=== PATIENT | male | born 1950 | race Caucasian/White ===

== ENCOUNTER 2023-06-25 11:13 | Outpatient (CLI) | payer OTHER | END 2023-06-25 11:14 | disposition home or self-care (01) | LOC: CSHRAD 11:13 | PROVIDERS: ATTEND Family Medicine | DX: G62.9 Polyneuropathy, unspecified (principal); M16.9 Osteoarthritis of hip, unspecified; R05.9 Cough, unspecified; M51.36 Other intervertebral disc degeneration, lumbar region; M47.816 Spondylosis without myelopathy or radiculopathy, lumbar region; M16.11 Unilateral primary osteoarthritis, right hip; Z96.642 Presence of left artificial hip joint; J98.6 Disorders of diaphragm; M48.54XA Collapsed vertebra, not elsewhere classified, thoracic region, initial encounter for fracture | CPT/HCPCS: 71046; 72100 ==

== ENCOUNTER 2023-08-08 13:05 | Outpatient (CLI) | payer OTHER | END 2023-08-08 13:06 | disposition home or self-care (01) | LOC: CSHMRI 13:05 | PROVIDERS: ATTEND Family Medicine | DX: M16.11 Unilateral primary osteoarthritis, right hip (principal); S76.011A Strain of muscle, fascia and tendon of right hip, initial encounter; M67.951 Unspecified disorder of synovium and tendon, right thigh ==

== ENCOUNTER 2023-08-31 17:03 | Emergency (ER) | payer OTHER ==
[2023-08-31 19:34] LABS: Bilirubin Neg (Negative); Blood, Urine 25 (Negative); Glucose, Urine (Dipstick) Normal (Negative); Ketone, Urine Negative (Negative); Leukocyte 25 (Negative); Nitrite Negative (Negative); Protein, Urine (Dipstick) Negative (Neg-Trace); Urobilinogen Normal mg/dL (Less than 2)
[2023-08-31 19:41] LABS: ALT (SGPT) 312 U/L (8-55); AST (SGOT) 195 U/L (5-34); Albumin 3.4 g/dL (3.4-4.8); Alkaline Phosphatase 82 U/L (40-110); Anion Gap 15 mmol/L (10-20); BUN (Urea Nitrogen) 17 mg/dL (8.4-25.7); Bilirubin, Total 0.8 mg/dL (0.2-1.2); Calc. Creatinine Clearance 0 mL/min (70-130); Calcium 8.5 mg/dL (7.8-10.44); Carbon Dioxide 24 mmol/L (23-31); Chloride 101 mmol/L (98-107); Estimated GFR 109; Globulin 3.6 g/dL (2.4-3.5); Glucose 129 mg/dL (83-110); Potassium 4.3 mmol/L (3.5-5.1); Sodium 136 mmol/L (136-145)
[2023-08-31 20:09] LABS: Clarity Turbid (Clear)
[2023-08-31 20:10] LABS: Bacteria/HPF 4+ HPF (None Seen); CAUTI Indications for Culture Dysuria,urgency,freq; RBC/HPF 0-3 HPF (0-3); Squamous Epithelial 0-3 HPF (0-3)
[2023-08-31 20:12] LABS: Urine Culture Reflex No No
== END 2023-08-31 20:25 | disposition home or self-care (01) ==
LOC: CSHERS 17:03
DX: N39.0 Urinary tract infection, site not specified (principal); E78.00 Pure hypercholesterolemia, unspecified
CPT/HCPCS: 80053; 81001; 99283

== ENCOUNTER 2023-10-08 11:37 | Outpatient (CLI) | payer OTHER | END 2023-10-08 11:38 | disposition home or self-care (01) | LOC: CSHMRI 11:37 | PROVIDERS: ATTEND Neurological Surgery | DX: G95.9 Disease of spinal cord, unspecified (principal); R29.898 Other symptoms and signs involving the musculoskeletal system; M47.814 Spondylosis without myelopathy or radiculopathy, thoracic region | CPT/HCPCS: 72146 ==

== ENCOUNTER 2024-03-04 13:49 | Emergency (ER) | payer OTHER ==
[2024-03-04] MEDS ORDERED: Acetaminophen 325 MG TAB ONE (15:20)
== END 2024-03-04 15:52 | disposition home or self-care (01) ==
LOC: CSHERS 13:49
DX: T83.091A Other mechanical complication of indwelling urethral catheter, initial encounter (principal); X58.XXXA Exposure to other specified factors, initial encounter
CPT/HCPCS: 51702; 87077; 87086; 87186; 99283

== ENCOUNTER 2024-08-16 10:35 | Outpatient (CLI) | payer OTHER | END 2024-08-16 10:36 | disposition home or self-care (01) | LOC: CSHRAD 10:35 | PROVIDERS: ATTEND Physician Assistant | DX: S32.009D Unspecified fracture of unspecified lumbar vertebra, subsequent encounter for fracture with routine healing (principal) | CPT/HCPCS: 72100 ==

== ENCOUNTER 2024-09-15 11:10 | Outpatient (CLI) | payer OTHER, MEDICARE | END 2024-09-15 11:11 | disposition home or self-care (01) | LOC: CSHRAD 11:10 | PROVIDERS: ATTEND Neurological Surgery | DX: S22.009A Unspecified fracture of unspecified thoracic vertebra, initial encounter for closed fracture (principal); S32.009A Unspecified fracture of unspecified lumbar vertebra, initial encounter for closed fracture; S22.000D Wedge compression fracture of unspecified thoracic vertebra, subsequent encounter for fracture with routine healing; S32.000D Wedge compression fracture of unspecified lumbar vertebra, subsequent encounter for fracture with routine healing | CPT/HCPCS: 72100 ==

== ENCOUNTER 2024-10-08 11:21 | Outpatient (CLI) | payer OTHER | END 2024-10-08 11:22 | disposition home or self-care (01) | LOC: CSHRAD 11:21 | PROVIDERS: ATTEND Neurological Surgery | DX: S22.009A Unspecified fracture of unspecified thoracic vertebra, initial encounter for closed fracture (principal); S32.009A Unspecified fracture of unspecified lumbar vertebra, initial encounter for closed fracture; S32.000A Wedge compression fracture of unspecified lumbar vertebra, initial encounter for closed fracture; M43.16 Spondylolisthesis, lumbar region; M81.0 Age-related osteoporosis without current pathological fracture | CPT/HCPCS: 72100 ==

== ENCOUNTER 2024-11-01 11:54 | Outpatient (CLI) | payer OTHER | END 2024-11-01 11:55 | disposition home or self-care (01) | LOC: CSHRAD 11:54 | PROVIDERS: ATTEND Physician Assistant | DX: S32.000A Wedge compression fracture of unspecified lumbar vertebra, initial encounter for closed fracture (principal); S32.000D Wedge compression fracture of unspecified lumbar vertebra, subsequent encounter for fracture with routine healing; M47.816 Spondylosis without myelopathy or radiculopathy, lumbar region | CPT/HCPCS: 72100 ==